=== PATIENT | male | born 1960 | race Hispanic/Latino ===

== ENCOUNTER 2023-09-06 08:24 | Emergency (ER) | payer OTHER ==
[~2023-09-06] VITALS: Ht 167.6 cm; Wt 65.8 kg
[2023-09-06] MEDS ORDERED: IBUPROFEN 600 MG TAB PO STA (08:37)
[2023-09-06 10:13] VITALS: O2SAT 99
== END 2023-09-06 12:21 | disposition home or self-care (01) ==
LOC: ER 08:33
DX: S92.321A Displaced fracture of second metatarsal bone, right foot, initial encounter for closed fracture (principal); S92.191A Other fracture of right talus, initial encounter for closed fracture; W20.8XXA Other cause of strike by thrown, projected or falling object, initial encounter; Y99.0 Civilian activity done for income or pay
CPT/HCPCS: 99283